=== PATIENT | male | born 1965 | race Caucasian/White ===

== ENCOUNTER 2018-11-05 23:12 | Emergency (ER) | payer OTHER ==
[~2018-11-05] VITALS: Ht 182.9 cm; Wt 90.9 kg
[~2018-11-05 23:12] MED LIST: AMOXICILLIN 8751 TAB PO; NAPROXEN500 MG PO; NO HOME MEDICATIONS; PROPOXYPHENE1 UDTAB PO
[2018-11-05 23:15] VITALS: BP 169/109; TEMP 96.9
[2018-11-05] MEDS ORDERED: CEPHALEXIN500 M1 PO (23:21)
[2018-11-06] VITALS: PULSE 82
== END 2018-11-06 00:01 | disposition home or self-care (01) ==
LOC: COL.ER 23:12
DX: S60.561A Insect bite (nonvenomous) of right hand, initial encounter (principal); W57.XXXA Bitten or stung by nonvenomous insect and other nonvenomous arthropods, initial encounter